=== PATIENT | female | born 1995 | race Caucasian/White ===

== ENCOUNTER 2023-03-08 17:47 | Emergency (ER) | payer OTHER ==
[2023-03-08] MEDS ORDERED: HYDROmorphone 1 MG/ML CARPUJECT IM STA (18:46)
[2023-03-08] MEDS ORDERED: DROPERIDOL 5 MG/2 ML VIAL IM STA (18:46)
--- NOTE | 2023-03-08 19:17 | ED Physician Documentation ---
PD HPI HEAD INJURY - Stated complaint Stated Complaint: HIT HEAD - Chief complaint Chief Complaint: Trauma Hd/Nk - History obtained from History obtained from: Patient - History of Present Illness Mechanism of head injury: Blow Where head injury occurred: [place] Tim[place] - onset: Today Pain level max: 8 Pain level now: 8 Location of injury: Front, Back Quality of pain: Pain, Aching, Dull Associated symptoms: Nausea / vomiting. No: LOC, AMS, Amnesia, Neck pain, Paresthesias, Seizures, Ear drainage Symptoms improve with: Rest Symptoms worsen with: Light Contributing factors: No: Anticoagulated, Intoxicated - Additional information Additional information: 27-year-old female states that she was hit in the front of the head by a dodgeball earlier today and "dazed". She states that she continued to play and then was accidentally kneed in the back of the head by another player. She states she has had vomiting and worsening headache since that time. The headache is holoacranial. Worse with light and sound. No neck or back pain. No focal neurological deficits. Review of Systems Constitutional: denies: Fever, Chills Throat: denies: Sore throat Respiratory: denies: Cough GI: reports: Nausea, Vomiting. denies: Abdominal Pain, Diarrhea : denies: Dysuria, Frequency, Hesitancy, Missed period, Now EGA Skin: denies: Rash Musculoskeletal: denies: Neck pain, Back pain Neurologic: denies: Confused PD PAST MEDICAL HISTORY - Past Medical History Past Medical History: No Cardiovascular: None Respiratory: None Neuro: None Endocrine/Autoimmune: None GI: None HEAD OF GEOGRAPHY: None : None HEENT: None Psych: None Musculoskeletal: None Derm: None - Past Surgical History Past Surgical History: No HEENT: Tonsil/Adenoidectomy - Present Medications Home Medications: Ambulatory Orders Medication Instructions Recorded Confirmed Ondansetron Odt [Zofran] 4 mg TL Q6H PRN #10 tablet 03/08/23 - Allergies Allergies/Adverse Reactions: Allergies Allergy/AdvReac Type Severity Reaction Status Date / Time No Known Drug Allergies Allergy Verified 03/08/23 18:17 - Social History Does the pt smoke?: No Smoking Status: Never smoker Does the pt drink ETOH?: Yes Does the pt have substance abuse?: No - Immunizations Immunizations are current?: Yes - POLST Patient has POLST: No PD ED PE NORMAL - Vitals Vital signs reviewed: Yes - General General: Alert and oriented X 3, No acute distress - HEENT HEENT: Atraumatic (No scalp hematomas or palpable skull fractures), PERRL, EOMI, Moist mucous membranes - Neck Neck: Supple, no meningeal sign, No bony TTP - Cardiac Cardiac: RRR, Strong equal pulses - Respiratory Respiratory: No respiratory distress, Clear bilaterally - Abdomen Abdomen: Soft, Non tender, Non distended - Back Back: No CVA TTP, No spinal TTP - Derm Derm: Warm and dry - Neuro Neuro: Alert and oriented X 3, pattern wheel maker 2-12 intact, No motor deficit, No sensory deficit, Normal speech Eye Opening: Spontaneous Motor: Obeys Commands Verbal: Oriented GCS Score: 15 - Psych Psych: Normal mood, Normal affect Results - Vitals Vitals: Vital Signs - 24 hr 03/08/23 03/08/23 03/08/23 18:10 19:34 20:12 Temperature 37.4 C Heart Rate 66 67 58 L Respiratory 18 18 17 Rate Blood Pressure 111/73 119/79 106/67 O2 Saturation 100 100 98 Oxygen O2 Source Room air - Rads (name of study) Head CT Relevant Findings:: Final report received, See rad report PD Medical Decision Making - ED course Complexity details: reviewed results, re-evaluated patient, considered differential, d/w patient, d/w family ED course: 27-year-old female status post to closed head injuries today. Worsening headache and vomiting. Head CT does not show any acute abnormalities. She was given a dose of Dilaudid and droperidol. Headache resolved. Vomiting resolved. We will treat as concussion. Head injury instructions given at bedside. Patient and family counseled regarding signs and symptoms for which I believe and urgent re-evaluation would be necessary. Patient with good understanding of and agreement to plan and is comfortable going home at this time This document was made in part using voice recognition software. While efforts are made to proofread this document, sound alike and grammatical errors may occur. Departure - Departure Disposition: 01 Home, Self Care Clinical Impression: Concussion Qualifiers: Encounter type: initial encounter Loss of consciousness presence/duration: without LOC Qualified Code(s): S06.0X0A - Concussion without loss of consciousness, initial encounter Condition: Good Instructions: ED Concussion Follow-Up: LATOYA CONNOR MD [Primary Care Provider] - Prescriptions: Ondansetron Odt [Zofran] 4 mg TL Q6H PRN #10 tablet PRN Reason: Nausea / Vomiting Comments: Your prescription was sent to [facility] in [place]. Please follow-up with your doctor for further care. [place] work. Your head CT does not show any acute abnormalities today, but you have symptoms consistent with a concussion. Forms: PCP List, Activity restrictions Discharge Date/Time: 03/08/23 20:11
--- NOTE | 2023-03-08 19:44 | CT Report ---
PROCEDURE: HEAD WO INDICATIONS: head vs knee, head vs ball, +vomiting TECHNIQUE: Noncontrast 4.5 mm thick angled axial sections acquired from the foramen magnum to the vertex. For r adiation dose reduction, the following was used: automated exposure control, adjustment of mA and/or kV according to patient size. COMPARISON: None. FINDINGS: Image quality: Excellent. CSF spaces: Basal cisterns are patent. No extra-axial fluid collections. Ventricles are normal in size and shape. Brain: No midline shift. No intracranial masses or hemorrhage. Owen-white matter interface is norm al. Skull and face: Calvarium and visualized facial bones are intact, without suspicious lesions. Sinuses: Visualized sinuses and mastoids are clear. IMPRESSION: No acute intracranial abnormality. Reviewed by: Colin Carias MD on 03/08/2023 7:43 PM PDT Approved by: Colin Carias MD on 03/08/2023 7:43 PM PDT Station ID: [id number]
[2023-03-08 20:15] VITALS: BP 106/67; O2SAT 98
== END 2023-03-08 20:11 | disposition home or self-care (01) ==
LOC: ED 17:47
DX: S06.0X0A Concussion without loss of consciousness, initial encounter (principal); W21.06XA Struck by volleyball, initial encounter; Y93.68 Activity, volleyball (beach) (court)
CPT/HCPCS: 70450; 96372; 99283; 99284; J1170

== ENCOUNTER 2023-04-23 10:50 | Emergency (ER) | payer OTHER ==
[2023-04-23 11:13] VITALS: BP 120/72; O2SAT 99
--- NOTE | 2023-04-23 11:30 | XRAY Report ---
PROCEDURE: Ankle 3 View LT INDICATIONS: Trauma TECHNIQUE: 3 views of the ankle were acquired. COMPARISON: None. FINDINGS: Bones: No fractures or dislocations. Ankle mortise is normally aligned. No suspicious bony lesions . Soft tissues: No tibiotalar joint effusion. Achilles tendon appears normal. IMPRESSION: No acute bony abnormality. Reviewed by: Colin Carias MD on 04/23/2023 11:28 AM PDT Approved by: Colin Carias MD on 04/23/2023 11:28 AM PDT Station ID: [id number]
--- NOTE | 2023-04-23 12:36 | ED Physician Documentation ---
History of Present Illness - Stated complaint Stated Complaint: LT ANKLE INJ - Chief complaint Chief Complaint: Ext Problem - Additonal information Additional information: 27-year-old female presents emergency department for evaluation of acute left foot and ankle pain. Was descending stairs 3 days ago when she tripped falling forward hyperextending her foot causing an abrasion on the dorsum of the foot at the ankle joint. Since then she has had some difficulty bearing weight. She has been icing the foot and taking Tylenol. No history of previous injury. Review of Systems Skin: reports: Abrasion (s) Musculoskeletal: reports: Joint pain PD PAST MEDICAL HISTORY - Past Medical History Cardiovascular: None Respiratory: None Neuro: None Endocrine/Autoimmune: None GI: None GAS METER CHECKER: None : None HEENT: None Psych: None Musculoskeletal: None Derm: None - Past Surgical History Past Surgical History: No HEENT: Tonsil/Adenoidectomy - Present Medications Home Medications: Ambulatory Orders Medication Instructions Recorded Confirmed Ondansetron Odt [Zofran] 4 mg TL Q6H PRN #10 tablet 03/08/23 Fluoxetine HCl [Prozac] 04/23/23 - Allergies Allergies/Adverse Reactions: Allergies Allergy/AdvReac Type Severity Reaction Status Date / Time No Known Drug Allergies Allergy Verified 04/23/23 11:01 - Social History Does the pt smoke?: No Smoking Status: Never smoker Does the pt drink ETOH?: Yes Does the pt have substance abuse?: No - Immunizations Immunizations are current?: Yes - POLST Patient has POLST: No PD ED PE EXPANDED - Extremities Extremities: Left ankle (2 cm abrasion dorsum of the left foot at the junction with the ankle. Full range of motion passively. Mild tenderness elicited along the dorsum of the foot near the ankle joint though no focal tenderness of either malleolus, the heel or base of the fifth metatarsal.) Results - Vitals Vitals: Vital Signs - 24 hr 04/23/23 10:57 Temperature 37.0 C Heart Rate 55 L Respiratory 16 Rate Blood Pressure 120/72 O2 Saturation 99 Oxygen O2 Source Room air - Rads (name of study) left ankle Relevant Findings:: Final report received (No acute bony abnormality) PD Medical Decision Making - ED course Complexity details: reviewed results, d/w patient ED course: Well-appearing and very active 27-year-old female presents emergency department for evaluation of left foot and ankle pain sustained when she descended steps several days ago missing one of the steps and hyperextending her foot causing an abrasion along the dorsum of it. She does have pain in the general ankle area though it is nonfocal. Difficulty bearing weight. An x-ray of the ankle is negative for acute fracture. I suspect she has a combination of both the hyperextension sprain as well as contusion. She was given an Louie wrap and offered crutches. I discussed with her the usual conservative care measures and likelihood of marked improvement over 7 to 10 days with RICE. If not markedly better would represent for repeat imaging to rule out occult fracture. Departure - Departure Disposition: 01 Home, Self Care Clinical Impression: Contusion of left foot Qualifiers: Encounter type: initial encounter Qualified Code(s): S90.32XA - Contusion of left foot, initial encounter Moderate left ankle sprain Qualifiers: Encounter type: initial encounter Qualified Code(s): S93.402A - Sprain of unspecified ligament of left ankle, initial encounter Condition: Stable Instructions: ED Sprain Ankle W X Ray Comments: Arlen you fell down the stairs several days ago and have a large contusion abrasion on the top of your left foot. You do have some pain within the ankle joint when walking or bearing weight. This is a sign of a sprain or tears or pools within the ligaments and tendons that support the ankle. The x-ray of your ankle does not show any broken bones. With most simple contusions and sprains I would expect pain to be markedly better by about 75% by day 7-10. If not fully improved then you should have your ankle venecia-rayed. In the short-term I recommend wearing the Louie bandage over your foot when out of bed to help with compression and swelling. Alternate taking 500 mg of Tylenol with 600 mg of Motrin taken with food 2-3 times a day.
== END 2023-04-23 12:43 | disposition home or self-care (01) ==
LOC: ED 10:50
DX: S90.32XA Contusion of left foot, initial encounter (principal); S90.812A Abrasion, left foot, initial encounter; S93.402A Sprain of unspecified ligament of left ankle, initial encounter; W10.8XXA Fall (on) (from) other stairs and steps, initial encounter; Y93.89 Activity, other specified
CPT/HCPCS: 99283

== ENCOUNTER 2023-05-31 15:49 | Outpatient (CLI) | payer OTHER ==
--- NOTE | 2023-05-31 17:52 | SLEEP CARE CONSULTATION ---
Information from patient questionnaire entered by Chiara Harris. I have reviewed and concur with the information entered by Chiara Harris. This document represents the service I personally performed and the decisions made by me, Hannah Bush MD, [facility]. History of Present Illness Service Date and Time: 05/31/2023 1549 Reason for Visit: New patient Chief Complaint: reports: Insomnia, Unrefreshed sleep, Excessive daytime sleepiness, Observed pauses in breathing, Fatigue, Frequent awakenings at night Date of Onset: 1.5YRS Usual bedtime: 2200 Time it takes to fall asleep: 1-2HRS Snores at night: Yes Observed to quit breathing while asleep: Yes Number of times waking at night: 3-5 Reasons for waking at night: reports: Gasping for air, Other (NIGHTMARES) Toss, Turn, or Twitch while sleeping: Yes Recalls having dreams: Yes Usually gets out of bed at: 0630 Feels refreshed in the morning: No Morning headache: Yes Sleepy or fatigued during the day: Yes Ever fallen asleep while driving: No Takes day naps: Yes Dreams during day naps: Yes Prior sleep studies: No Additional HPI information: I have the pleasure of seeing Ms. Frazier today regarding the possibility of her having obstructive sleep apnea. As you know, she is a 28-year-old lady who complains of waking up gasping. She is from the [facility] and would like to have the condition checked out. The patient tells me that she normally goes to bed around 10 pm, and it takes her approximately 1 2 hours to fall asleep. She takes Nyquil and melatonin. She has been told that she snores loudly and irregularly at night. She has also been observed to stop breathing in her sleep. However, she sleeps alone. She can recall waking up on the average of 2 - 5 times during the night. Most of the time she wakes up because of bad dreams. She has awakened occasionally because of her own snoring, choking, and having to gasp for air. There is a lot of tossing and turning in her sleep. She has somniloquy (sleep talking) but not somnambulism (sleep walking). Generally, she can recall having dreams. In the morning she usually gets up out of the bed around 7 a.m. (7 8 a.m. on weekends) not feeling refreshed nor rested. She occasionally has a morning headache. During the day she complains of feeling sleepy and fatigued. Her score on [place] Sleepiness Scale is 3 out of 24. She has fallen asleep while driving but no accident. She usually does not take naps during the day. She reports having impaired concentration during the day. - Parasomnia Symptoms Ever been unable to move upon waking from sleep: Yes Walks in sleep: No Talks in sleep: Yes Ever acted out dreams in sleep: Yes Ever felt weak in the knees when startled or emotional: Yes Bothered by creepy, crawly, restless sensations in legs: Yes Problems with memory or concentration: No Subjective Initial [place] Sleepiness Scale score: 3 (05/31/23) Past Medical History Past Medical History: reports: Anxiety, Depression, Attention deficit Social History The patient's occupation is a AM. Patient is Single and lives in . Have you smoked in the past 12 months: No Alcohol use: Yes Alcohol amount and frequency: 1-2 DRINKS 1-2X WEEK Caffeine use: Yes Caffeine amount and frequency: 70MG VERY RARE 1-2 X A WEEK Family History Family history of sleep disordered breathing: Yes Family Hx Sleep Apnea: Father: Snoring, Sibling: Snoring, Grandparent: Snoring Allergies and Home Medications Known drug allergies: No Drug allergies reviewed: Yes Home medication list reviewed: Yes Allergy and home medication list: Allergies No Known Drug Allergies Allergy (Verified 05/29/23 12:27) Review of Systems Weight gain over past 5 years: 10 Cardiovascular: denies: high blood pressure, palpitations, chest pain, irregular heart rate or pulse, leg or foot swelling, have to sleep sitting up, other Respiratory: denies: shortness of breath, wheeze, sputum production, chronic cough, other Gastrointestinal: reports: nausea Urinary: denies: incontinence, frequency, urgency, impotence, other Neurological: reports: headaches, head trauma Psychiatric: reports: Attention Deficit Hyperactivity, anxiety, depression Ear/Nose/Throat: reports: tonsillectomy, wisdom teeth removed Endocrine: reports: too hot or cold, other (NIGHT SWEATS) Musculoskeletal: reports: joint pain, back pain, muscle pain or cramping Immunologic: reports: rash, itching, allergies to food or environment Physical Exam Vital signs obtained and entered by: CHIARA Martinez MA Height: 5 ft 7 in (PER PT) Weight: 154 lb (PER PT) Body Mass Index: 24.1 BMI Classification: Normal Impression and Plan IMPRESSION: 1. Obstructive Sleep Apnea-Hypopnea Syndrome, as evident by history of loud snoring, observed cessation of breath while asleep, frequent awakenings during the night, nocturnal choking, unrefreshed sleep, cognitive impairment, and daytime hypersomnolence. I recommend proceeding to polysomnography to confirm the diagnosis and to assess severity. I informed the patient of what the sleep studies involve and after some discussion, she agreed to proceed. Plan: 1. Schedule polysomnography and return in 1 to 2 weeks after the study to discuss result and initiate therapy. 2. Avoid long distance driving or when feeling sleepy. 3. Avoid alcohol, sedative and muscle relaxant around bedtime. Follow up with Sleep Care in: 1-2 months Visit Type: Telehealth Video Video Type: Romel Patient Location: Home Location of Provider: Office Patient agrees and consents to this telehealth visit type: Yes Patient agrees to have their insurance billed: Yes Provider Statement: I spent 100% of the Telehealth Video Call with the patient with greater than 50% spent counseling the patient and coordination of care.
== END 2023-05-31 15:50 | disposition home or self-care (01) ==
LOC: SC 15:49
PROVIDERS: ATTEND Internal Medicine Pulmonary Disease
DX: R06.83 Snoring (principal); R06.81 Apnea, not elsewhere classified; G47.8 Other sleep disorders; G47.10 Hypersomnia, unspecified; R41.89 Other symptoms and signs involving cognitive functions and awareness

== ENCOUNTER 2023-06-22 20:30 | Outpatient (CLI) | payer OTHER | END 2023-06-22 20:31 | disposition home or self-care (01) | LOC: SC 20:30 | PROVIDERS: ATTEND Internal Medicine Pulmonary Disease | DX: R06.83 Snoring (principal); G47.8 Other sleep disorders; G47.00 Insomnia, unspecified; R51.9 Headache, unspecified; G47.50 Parasomnia, unspecified; R06.81 Apnea, not elsewhere classified; F32.A Depression, unspecified | CPT/HCPCS: 95810 ==

== ENCOUNTER 2023-07-03 11:24 | Outpatient (CLI) | payer OTHER ==
[2023-07-04 08:48] VITALS: BP 117/72; O2SAT 99
--- NOTE | 2023-07-04 08:48 | SLEEP CARE CONSULTATION ---
Information from patient questionnaire entered by Chiara Harris. I have reviewed and concur with the information entered by Chiara Harris. This document represents the service I personally performed and the decisions made by me, Hannah Bush MD, [facility]. History of Present Illness Service Date and Time: 07/03/2023 1124 Initial [place] Sleepiness Scale score: 3 (05/31/23) Current [place] Sleepiness Scale score: 8 (07/03/23) Additional HPI information: Ms. Frazier returned for follow up of the sleep study she had on 06/22/2023. The polysomnography showed that the patient had normal sleep efficiency. The sleep architecture was also normal. Respiratory monitoring showed no significant sleep disordered breathing (AHI = 0.8) ort hypoxia (sahil oxygen saturation of 91%). The patient only slept supine during this study (supine AHI = 0.8; non-supine = 0.00). Snore was light to moderate in intensity. There was no significant periodic leg movement of sleep. Cardiac rhythm was normal sinus rhythm without significant arrhythmia. No abnormal behavior (parasomnia) observed during the night. The patient was informed of these findings. I explained to her that the sleep study was normal. The patient continues to complain of frequent awakenings, unrefreshed sleep, and excessive daytime sleepiness. Her [place] Sleepiness Scale score today is 8. She says she falls asleep driving. She dreams during naps. 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 Sleep Study - Results Type of Sleep Study: Polysomnography (COMPLETED 06/22/23) Prior sleep studies: No Allergies and Home Medications Drug allergies reviewed: Yes Home medication list reviewed: Yes Allergy and home medication list: Allergies No Known Drug Allergies Allergy (Verified 06/30/23 14:19) Review of Systems Review of systems same as previous: Yes (NO CHANGE) Physical Exam Vital signs obtained and entered by: CHIARA Martinez MA Blood Pressure: 117/72 (LEFT ARM) Cuff size: regular Heart Rate: 76 O2 Saturation: 99 Height: 5 ft 7 in (PER PT) Weight: 156 lb 9.6 oz Body Mass Index: 24.5 BMI Classification: Normal Impression and Plan IMPRESSION: 1. Hypersomnia unspecified. She does not have sleep disrupting conditions. Further evaluation with a multiple sleep latency test (MSLT) is prohibited by shift work and her taking Prozac which is a REM sleep suppressant drug. PLAN: 1. Consider multiple sleep latency test (MSLT) once she no longer works shift and can get off Prozac for at least 2 weeks. 2. Return for a follow up on as needed basis. Follow up with Sleep Care in: as needed Visit Type: In Office Time Spent with Patient (minutes): 15 Provider Statement: I spent 100% of the Face to Face Visit with the patient with greater than 50% spent counseling the patient and coordination of care.
== END 2023-07-03 11:25 | disposition home or self-care (01) ==
LOC: SC 11:24
PROVIDERS: ATTEND Internal Medicine Pulmonary Disease
DX: G47.10 Hypersomnia, unspecified (principal); G47.8 Other sleep disorders
CPT/HCPCS: 99212